=== PATIENT | male | born 2000 | race African-American/Black ===

== ENCOUNTER 2022-08-23 16:49 | Emergency (ER) | payer MEDICAID, SELFPAY ==
[2022-08-23 17:42] VITALS: BP 146/95; PULSE 56; RESP 18; TEMP 36.6; O2SAT 100; BMI 19.3
--- NOTE | 2022-08-23 17:42 | ED_ITS ---
HPI - Dental/Oral General Chief complaint: General Medical Stated complaint: mouth infection tooth pain Time Seen by Provider: 08/23/22 17:44 Source: patient Mode of arrival: ambulatory Limitations: no limitations History of Present Illness HPI Narrative: 21 yo male presents to the ER for evaluation of right lower wisdom tooth infection for the last 6 weeks. He reports completing a course of antibiotic about a month ago that only briefly helped. He states he has a cracked right lower wisdom tooth and need to get it removed. He called and has a dentist appointment 09/07 but report the pain is worse today. He reports increased lymph nodes on his neck. No trouble opening/closing the jaw, neck swelling, trouble swallowing or speaking. No fevers at home. MD Complaint: tooth pain Location: Tooth # Teeth map: 1. #32 Onset (ago): week(s) Duration: worsening Severity: severe Severity scale (1-10): 9 Relieving factors: nothing Exacerbating factors: chewing Context: trauma (mechanism) Associated symptoms: ear pain Treatment prior to arrival: none Related Data Previous Rx's Medication Instructions Recorded clindamycin HCl 300 mg capsule 300 mg PO Q8H 10 days #30 caps 08/23/22 ibuprofen 600 mg tablet 600 mg PO Q8H PRN pain #20 tabs 08/23/22 tramadol 50 mg tablet 50 mg PO Q6H PRN severe pain 08/23/22 (scale score 7-10) #10 tabs Allergies Allergy/AdvReac Type Severity Reaction Status Date / Time No Known Allergies Allergy Verified 08/23/22 17:47 Review of Systems Review of Systems: Yes all other systems are reviewed and are negative FOR[facility]LY [facility] Social History Social History Advance Directives: No Advance Directives Information Provided: No Physical Exam Vital Signs: Vital Signs: Last Vital Signs Temp 97.9 F 08/23/22 17:42 Pulse 56 08/23/22 17:42 Resp 18 08/23/22 17:42 BP 146/95 H 08/23/22 17:42 Pulse Ox 100 08/23/22 17:42 O2 Del Method 08/23/22 17:42 BMI result Body Mass Index 19.3 Appearance: Alert. Oriented X3. No acute distress. HEENT: normal external inspection. no anterior neck swelling. no trismus. right lower molar with crack w/ exposed dentin, associated gingival tenderness and redness. no fluctunace. uvula midline, no tonsillar swelling Neck: few small tender LN along the submandibular area on the right CVS: Normal heart rate and rhythm. Pulses normal. Respiratory: No respiratory distress. Skin: Skin warm and dry. Normal skin color. Normal skin turgor. No rashes. Extremities: normal inspection Neuro: Oriented X 3. Normal speech and cognition, nonfocal Course Course Course Narrative: 21 yo male presenting with right lower wisdom tooth pain x6 weeks. NO palpable abscess on exam today. No neck swelling. Will treat with PO abx, pain control and anti-inflammatories. List of emergency dental clinics provided to try to get in earlier. Stable for d/c home. Medical Decision Making Differential Diagnosis Differential Diagnoses: The differential diagnosis associated with the presentation includes dental trauma, dental infection, dental abscess, doubt ludwigs angina, soft tissue infection of the neck Prescription Management I considered prescription management with: Pain Medication and Antibiotic Critical Care Time Critical Care Time Critical Care Time: No Discharge Plan Discharge Clinical Impression: Toothache Patient Disposition: Home, Self-Care Instructions: Toothache (ED) Prescriptions: New clindamycin HCl 300 mg capsule 300 mg PO Q8H 10 Days Qty: 30 0RF ibuprofen 600 mg tablet 600 mg PO Q8H PRN (Reason: pain) Qty: 20 0RF tramadol 50 mg tablet 50 mg PO Q6H PRN (Reason: severe pain (scale score 7-10)) Qty: 10 0RF Interventions: ED Discharge Assessment Last Done: 08/23/22 18:41 Discharge Date/Time: 08/23/22 18:42
== END 2022-08-23 18:42 | disposition home or self-care (01) ==
LOC: HO.ED 18:00
PROVIDERS: Emergency Provider Emergency Medicine
DX: K08.89 Other specified disorders of teeth and supporting structures (principal); K03.81 Cracked tooth
CPT/HCPCS: 99282; 99283

== ENCOUNTER 2022-09-02 00:15 | Emergency (ER) | payer MEDICAID, SELFPAY ==
[2022-09-02 00:20] VITALS: BP 143/99; PULSE 55; RESP 18; TEMP 36.6; O2SAT 100; BMI 19.9
--- NOTE | 2022-09-02 00:38 | ED_ITS ---
HPI - Dental/Oral General Chief complaint: Dental/Oral Stated complaint: tooth pain Time Seen by Provider: 09/02/22 00:37 Source: patient Mode of arrival: ambulatory Limitations: no limitations History of Present Illness HPI Narrative: Patient with dental caries was seen here on 08/23 comes here again as pain getti ng worse was treated with clindamycin patient is a deep cavity in left upper premolar no fever no chills Related Data Previous Rx's Medication Instructions Recorded clindamycin HCl 300 mg capsule 300 mg PO Q8H 10 days #30 caps 08/23/22 ibuprofen 600 mg tablet 600 mg PO Q8H PRN pain #20 tabs 08/23/22 tramadol 50 mg tablet 50 mg PO Q6H PRN severe pain 08/23/22 (scale score 7-10) #10 tabs amoxicillin 875 mg-potassium 1 tab PO BID #20 tabs 09/02/22 clavulanate 125 mg tablet oxycodone 5 mg tablet 5 mg PO Q6H PRN pain #20 tabs 09/02/22 Allergies Allergy/AdvReac Type Severity Reaction Status Date / Time No Known Allergies Allergy Verified 09/02/22 00:20 Review of Systems Review of Systems: Yes all other systems are reviewed and are negative PMFSH Social History Social History Advance Directives: No Advance Directives Information Provided: Yes Physical Exam Vital Signs: Vital Signs: Last Vital Signs Temp 97.8 F 09/02/22 00:20 Pulse 55 09/02/22 00:20 Resp 18 09/02/22 00:20 BP 143/99 H 09/02/22 00:20 Pulse Ox 100 09/02/22 00:20 O2 Del Method 09/02/22 00:20 BMI result Body Mass Index 19.9 Appearance: Alert. Oriented X3. Mild distal s. ENT: Pharynx normal. Oral Mucosa moist Neck: Normal inspection. Neck supple. CVS: Normal heart rate and rhythm. Pulses normal. Respiratory: No respiratory distress. Equal air entry bilateral, Skin: Skin warm and dry. Normal skin color. Normal skin turgor. Extremities: No lower extremity edema. Neuro: Oriented X 3. HEENT: Teeth image: 1. Diffuse cavity broken to left upper premolar multiple cavities in other teeth with loss of teeth no gum swelling Medications Administered Discontinued Medications Generic Name Dose Route Start Last Admin Trade Name Freq PRN Reason Stop Dose Admin Amoxicillin/Clavulanate Potassium 875 mg 09/02/22 00:38 09/02/22 00:48 Amoxicillin/Potassium Clav 875 Mg Tablet PO 09/02/22 00:39 875 mg ONCE ONE Administration Oxycodone HCl 10 mg 09/02/22 00:38 09/02/22 00:47 Oxycodone Hcl Immed Release 5 Mg Tablet PO 09/02/22 00:39 10 mg ONCE ONE Administration Medical Decision Making Medical Decision Making [facility] Narrative: Patient refuse care is discharged home on Augmentin and pain medication advised to follow-up with dentist Discharge Plan Discharge Clinical Impression: Dental caries Patient Disposition: Home, Self-Care Instructions: Toothache (ED) Additional Instructions: Take antibiotic as prescribed Pain medication as prescribed Follow up with dentist Prescriptions: New amoxicillin-pot clavulanate 875-125 mg tablet 1 tab PO BID Qty: 20 0RF oxycodone 5 mg tablet 5 mg PO Q6H PRN (Reason: pain) Qty: 20 0RF Rx Instructions: Partial Fill upon patient request. No Action clindamycin HCl 300 mg capsule 300 mg PO Q8H 10 Days Qty: 30 0RF ibuprofen 600 mg tablet 600 mg PO Q8H PRN (Reason: pain) Qty: 20 0RF tramadol 50 mg tablet 50 mg PO Q6H PRN (Reason: severe pain (scale score 7-10)) Qty: 10 0RF Interventions: ED Discharge Assessment Last Done: 09/02/22 00:53 Discharge Date/Time: 09/02/22 00:53
[2022-09-02] MEDS: oxyCODONE HCl Immed Release 5 MG TABLET 10 MG PO (00:47)
[2022-09-02] MEDS: Amoxicillin/Potassium Clav 875 MG TABLET PO (00:48)
--- NOTE | 2022-09-02 00:52 | PC.NURSE ---
medicated per provider order.
== END 2022-09-02 00:53 | disposition home or self-care (01) ==
PROVIDERS: Emergency Provider Internal Medicine
DX: K02.9 Dental caries, unspecified (principal); K08.89 Other specified disorders of teeth and supporting structures
CPT/HCPCS: 99283

== ENCOUNTER 2022-09-09 04:33 | Emergency (ER) | payer MEDICAID, SELFPAY ==
[2022-09-09 05:17] VITALS: BP 149/80; PULSE 58; RESP 18; TEMP 36.9; O2SAT 100; BMI 19.3
[2022-09-09 07:53] VITALS: BP 141/86; PULSE 57; RESP 16; TEMP 36.9; O2SAT 100
--- NOTE | 2022-09-09 08:50 | ED_ITS ---
HPI - Dental/Oral General Chief complaint: Dental/Oral Stated complaint: tooth pain, throat pain Time Seen by Provider: 09/09/22 08:39 Source: patient Mode of arrival: ambulatory History of Present Illness HPI Narrative: 21-year-old male with past medical history dental caries presenting to the ED complaining of acute on chronic right lower and left upper dental pain x months. Admits was recently seen and treated in the ED for similar symptoms finished 2 courses of antibiotics without relief. Reports followed up with dentist yesterday however was unable to be seen due to insurance issues. Reports pain radiates to right ear. Denies fever, chills, oral swelling, difficulty/inability to swallow MD Complaint: tooth pain Onset (ago): month(s) Related Data Previous Rx's Medication Instructions Recorded clindamycin HCl 300 mg capsule 300 mg PO Q8H 10 days #30 caps 08/23/22 ibuprofen 600 mg tablet 600 mg PO Q8H PRN pain #20 tabs 08/23/22 tramadol 50 mg tablet 50 mg PO Q6H PRN severe pain 08/23/22 (scale score 7-10) #10 tabs amoxicillin 875 mg-potassium 1 tab PO BID #20 tabs 09/02/22 clavulanate 125 mg tablet oxycodone 5 mg tablet 5 mg PO Q6H PRN pain #20 tabs 09/02/22 acetaminophen 500 mg tablet 500 mg PO Q6H PRN fever or pain 09/09/22 (Tylenol Extra Strength) #14 tabs ketorolac 10 mg tablet 10 mg PO TID PRN pain 5 days #15 09/09/22 tabs Allergies Allergy/AdvReac Type Severity Reaction Status Date / Time No Known Allergies Allergy Verified 09/02/22 00:20 Review of Systems Review of Systems: Constitutional: No Fever, No Chills ENT/Mouth: +dental pain, + Ear Pain, No Nasal Congestion, No Hoarseness, No sore throat, No Rhinorrhea, No Swallowing Difficulty Cardiovascular: No Chest Pain, No SOB Respiratory: No Cough, No Sputum, No Wheezing Gastrointestinal: No Nausea, No Vomiting, No Diarrhea, No Constipation, No Abdominal pain Musculoskeletal: No joint pain, No Myalgias, No Joint Swelling Skin: No Skin Lesions, No rash Neuro: No Weakness Yes all other systems are reviewed and are negative Constitutional: Constitutional: Reports as per HPI [facility] Past Medical History Attestation statement: The following information was validated with the patient. Social History Social History Alcohol intake: never Smoked in Last 30 Days: No Use of substances other than those prescribed or required for medical reasons: No Advance Directives: No Physical Exam Vital Signs: Vital Signs: Last Vital Signs Temp 98.5 F 09/09/22 07:53 Pulse 57 09/09/22 07:53 Resp 16 09/09/22 07:53 BP 141/86 H 09/09/22 07:53 Pulse Ox 100 09/09/22 07:53 O2 Del Method 09/09/22 07:53 BMI result Body Mass Index 19.3 Const: General: cooperative, healthy appearing, comfortable and no acute distress Orientation/consciousness: patient oriented x3 Limitations: no limitations HEENT: Other: + right lower molar and left upper premolar cracked. No visible pulp. No erythema, no gingival swelling, no gingival tenderness. No fluctuance and induration Head: Yes normal to inspection and Yes atraumatic Ears: hearing grossly normal bilaterally, TM's normal bilaterally and mastoids normal General nose exam: Normal external nose present Face and sinus: Yes normal facial exam Teeth and gingiva: gingiva normal and normal gingiva Throat: Yes posterior oropharynx normal, Yes tonsils normal and Yes uvula midline Eyes: General: appearance normal, both eyes and all related structures EOM: EOMs intact bilaterally Neck: Neck: Yes normal visual inspection, Yes no meningeal signs, Yes supple, No anterior neck swelling and No torticollis Resp: Effort & Inspection: normal respiratory effort and no respiratory distress Cardio: Rate: regular rate Skin: Rashes: no rashes Wounds: no wounds Neuro: General: patient oriented x3, tone normal and no meningeal signs Gait exam (Neuro): Normal gait present Extrem: General: Yes normal to inspection Medications Administered Discontinued Medications Generic Name Dose Route Start Last Admin Trade Name Freq PRN Reason Stop Dose Admin Ketorolac Tromethamine 30 mg 09/09/22 08:51 09/09/22 09:07 Ketorolac Tromethamine 30 Mg/Ml Vial IM 09/09/22 08:52 30 mg ONCE ONE Administration Medical Decision Making Medical Decision Making MDM Narrative: 21-year-old male with past medical history dental caries presenting to the ED complaining of acute on chronic right lower and left upper dental pain x months. On exam vital signs stable, NAD, nontoxic appearing, physical exam as noted above. No evidence of active infection, no dental abscess/fluctuance or induration. Chronically cracked teeth without gingival inflammation/erythema. Per chart review patient recently finished a course of Clindamycin and Augmentin. Low concern for infection at this time. Discussed with patient needed dentistry follow-up. Will give IM Toradol and pain control Will avoid additional antibiotics at this time in supply patient with dental clinic list Results discussed with patient including worrisome signs and symptoms and strict return precautions, and when to return to the emergency department. They verbalized understanding and feel safe for discharge at this time. Differential Diagnosis Differential Diagnoses: The differential diagnosis associated with the presentation includes as above External Record Review External record reviewed: Prior outpatient labs, Prior outpatient radiology and Primary care record Prescription Management I considered prescription management with: Pain Medication Discharge Plan Discharge Clinical Impression: Toothache Patient Disposition: Home, Self-Care Instructions: Toothache (ED) Additional Instructions: Toradol as an anti-inflammatory/pain medication, take with food. In addition take Tylenol Please follow-up with a dentist you need her teeth pulled Area begins look infected, has increasing swelling, redness, you fever or drainage from the area return to the emergency department Prescriptions: New acetaminophen [Tylenol Extra Strength] 500 mg tablet 500 mg PO Q6H PRN (Reason: fever or pain) Qty: 14 0RF ketorolac 10 mg tablet 10 mg PO TID PRN (Reason: pain) 5 Days Qty: 15 0RF No Action clindamycin HCl 300 mg capsule 300 mg PO Q8H 10 Days Qty: 30 0RF ibuprofen 600 mg tablet 600 mg PO Q8H PRN (Reason: pain) Qty: 20 0RF tramadol 50 mg tablet 50 mg PO Q6H PRN (Reason: severe pain (scale score 7-10)) Qty: 10 0RF amoxicillin-pot clavulanate 875-125 mg tablet 1 tab PO BID Qty: 20 0RF oxycodone 5 mg tablet 5 mg PO Q6H PRN (Reason: pain) Qty: 20 0RF Rx Instructions: Partial Fill upon patient request. Referrals: Dvaid Nieto [Dentist] - Scar Lee DMD [Dentist] - Tim Jon DMD [Dentist] - ED Physician,Generic [Physician] - 5 days Interventions: ED Discharge Assessment Last Done: 09/09/22 09:19 Discharge Date/Time: 09/09/22 09:20
[2022-09-09] MEDS: Ketorolac Tromethamine 30 MG/ML VIAL IM (09:07)
== END 2022-09-09 09:20 | disposition home or self-care (01) ==
PROVIDERS: Emergency Provider Student in an Organized Health Care Education/Training Program
DX: R07.0 Pain in throat (principal); K08.89 Other specified disorders of teeth and supporting structures; Z79.899 Other long term (current) drug therapy
CPT/HCPCS: 96372; 99284; J1885

== ENCOUNTER 2022-09-14 02:38 | Emergency (ER) | payer MEDICAID, SELFPAY ==
[2022-09-14 02:55] VITALS: BP 135/89; PULSE 60; RESP 15; TEMP 36.6; O2SAT 99; BMI 19.9
--- NOTE | 2022-09-14 04:24 | ED.DENTAL ---
HPI - Dental/Oral General Chief complaint: Dental/Oral Stated complaint: severe tooth pain bottom teeth Time Seen by Provider: 09/14/22 04:20 Source: patient Mode of arrival: ambulatory History of Present Illness HPI Narrative: 21-year-old male who presents with recurrent/persistent dental pain and this will be the 2nd time he is requesting antibiotics. He denies any difficulty with breathing or swallowing. He denies any fever or chills. Related Data Previous Rx's Medication Instructions Recorded clindamycin HCl 300 mg capsule 300 mg PO Q8H 10 days #30 caps 08/23/22 ibuprofen 600 mg tablet 600 mg PO Q8H PRN pain #20 tabs 08/23/22 tramadol 50 mg tablet 50 mg PO Q6H PRN severe pain 08/23/22 (scale score 7-10) #10 tabs amoxicillin 875 mg-potassium 1 tab PO BID #20 tabs 09/02/22 clavulanate 125 mg tablet oxycodone 5 mg tablet 5 mg PO Q6H PRN pain #20 tabs 09/02/22 acetaminophen 500 mg tablet 500 mg PO Q6H PRN fever or pain 09/09/22 (Tylenol Extra Strength) #14 tabs ketorolac 10 mg tablet 10 mg PO TID PRN pain 5 days #15 09/09/22 tabs amoxicillin 875 mg-potassium 1 tab PO BID 10 days #20 tabs 09/14/22 clavulanate 125 mg tablet Allergies Allergy/AdvReac Type Severity Reaction Status Date / Time No Known Allergies Allergy Verified 09/02/22 00:20 Review of Systems Review of Systems: Pertinent positives and negatives as stated in HPI PMFSH Past Medical History Source: nursing notes reviewed Social History Social History Alcohol intake: never Advance Directives: No Advance Directives Information Provided: Yes Physical Exam Vital Signs: Vital Signs: Last Vital Signs Temp 98 F 09/14/22 02:55 Pulse 60 09/14/22 02:55 Resp 15 09/14/22 02:55 BP 135/89 09/14/22 02:55 Pulse Ox 99 09/14/22 02:55 O2 Del Method 09/14/22 02:55 BMI result Body Mass Index 19.9 VITAL SIGNS: Reviewed. GENERAL: Well developed, well nourished, in mild distress. HEAD: Normocephalic/atraumatic EYES: PERRLA, EOMI OROPHARYNX: no oral lesions noted, posterior pharynx clear, no trismus NECK: Supple, no adenopathy LUNGS: Normal breath sounds. No adventitious sounds or accessory muscle use. SpO2<99> CARDIOVASCULAR: Regular rate and rhythm without noted murmurs ABDOMEN: Soft, non-tender, non-distended with bowel sounds. NEUROLOGIC: Alert and oriented x 4. Strength and sensation to light touch were grossly intact x 4. Medications Administered Discontinued Medications Generic Name Dose Route Start Last Admin Trade Name Freq PRN Reason Stop Dose Admin Acetaminophen 975 mg 09/14/22 04:24 09/14/22 04:38 Acetaminophen 325 Mg Tablet PO 09/14/22 04:25 975 mg ONCE ONE Administration Amoxicillin/Clavulanate Potassium 875 mg 09/14/22 04:24 09/14/22 04:37 Amoxicillin/Potassium Clav 875 Mg Tablet PO 09/14/22 04:25 875 mg ONCE ONE Administration Ibuprofen 400 mg 09/14/22 04:24 09/14/22 04:37 Ibuprofen 400 Mg Tablet PO 09/14/22 04:25 400 mg ONCE ONE Administration Medical Decision Making Medical Decision Making MDM Narrative: 21-year-old male with history and clinical presentation of dental infection that he still has not gone to be evaluated for. He is given topical anesthetic, combination analgesics, initial antibiotics and discharged home in stable condition with remaining course of antibiotics. Differential Diagnosis Please see the discussion above External Record Review External record reviewed: Outpatient record and Prior outpatient labs Discharge Plan Discharge Clinical Impression: Toothache, Dental caries Patient Disposition: Home, Self-Care Instructions: Dental Abscess (ED), Toothache (ED) Additional Instructions: 1. Tylenol 1000 mg, orally, every 6 hours as needed for pain control. Do not exceed 4000 mg within 24 hours. 2. Ibuprofen 400 mg, orally with milk or food, every 6 hours as needed for pain control. Take this medication with the Tylenol for additional symptom relief. 3. Go see a dentist!! You have been here 3 times within the past month, it is very important. You can use Anbesol, it is available over the counter. Prescriptions: New amoxicillin-pot clavulanate 875-125 mg tablet 1 tab PO BID 10 Days Qty: 20 0RF No Action clindamycin HCl 300 mg capsule 300 mg PO Q8H 10 Days Qty: 30 0RF ibuprofen 600 mg tablet 600 mg PO Q8H PRN (Reason: pain) Qty: 20 0RF tramadol 50 mg tablet 50 mg PO Q6H PRN (Reason: severe pain (scale score 7-10)) Qty: 10 0RF amoxicillin-pot clavulanate 875-125 mg tablet 1 tab PO BID Qty: 20 0RF oxycodone 5 mg tablet 5 mg PO Q6H PRN (Reason: pain) Qty: 20 0RF Rx Instructions: Partial Fill upon patient request. acetaminophen [Tylenol Extra Strength] 500 mg tablet 500 mg PO Q6H PRN (Reason: fever or pain) Qty: 14 0RF ketorolac 10 mg tablet 10 mg PO TID PRN (Reason: pain) 5 Days Qty: 15 0RF Interventions: ED Discharge Assessment Last Done: 09/14/22 04:43 Discharge Date/Time: 09/14/22 04:43
[2022-09-14] MEDS: Ibuprofen 400 MG TABLET PO (04:37)
[2022-09-14] MEDS: Amoxicillin/Potassium Clav 875 MG TABLET PO (04:37)
[2022-09-14] MEDS: Acetaminophen 325 MG TABLET 975 MG PO (04:38)
== END 2022-09-14 04:43 | disposition home or self-care (01) ==
PROVIDERS: Emergency Provider Student in an Organized Health Care Education/Training Program
DX: K02.9 Dental caries, unspecified (principal)
CPT/HCPCS: 99283

== ENCOUNTER 2022-10-23 03:50 | Emergency (ER) | payer MEDICAID, SELFPAY ==
[2022-10-23 04:04] VITALS: BP 139/95; PULSE 45; RESP 16; TEMP 36.2; O2SAT 99; BMI 18.6
--- NOTE | 2022-10-23 05:07 | PC.NURSE ---
Pt presents with c/o tooth pain, left upper, ? recurrent infection. Issues has been ongoing since August and pt is scheducled for a tooth extraction 11/02. Has been treated with antibiotics recently and pt finished the prescription. Yesterday, pain returned and is described as throbbing/burning and currently rated 3/10. Pain is unrelieved by OTC measures at home. No other complaints or concerns reported.
--- NOTE | 2022-10-23 06:43 | PC.NURSE ---
Pt is sleeping, but arousable with verbal stimuli. Appears to be comfortable and changes position independently as desired.
--- NOTE | 2022-10-23 07:13 | ED_ITS ---
HPI - Dental/Oral General Chief complaint: Dental/Oral Stated complaint: Mouth Pain Time Seen by Provider: 10/23/22 06:59 Source: patient Mode of arrival: ambulatory Limitations: no limitations History of Present Illness HPI Narrative: 21-year-old male healthy presents with 2 months of left upper dental pain. Kia ent reports that he was seen at his dentist and was recommended that he have the tooth extracted. He has plans to have it removed on November 02. He reports over the last few days it increasing pain to the tooth, swelling and discomfort. No fevers or chills. Using Tylenol/Motrin at home with continued symptoms MD Complaint: tooth pain Related Data Previous Rx's Medication Instructions Recorded clindamycin HCl 300 mg capsule 300 mg PO Q8H 10 days #30 caps 08/23/22 ibuprofen 600 mg tablet 600 mg PO Q8H PRN pain #20 tabs 08/23/22 tramadol 50 mg tablet 50 mg PO Q6H PRN severe pain 08/23/22 (scale score 7-10) #10 tabs amoxicillin 875 mg-potassium 1 tab PO BID #20 tabs 09/02/22 clavulanate 125 mg tablet oxycodone 5 mg tablet 5 mg PO Q6H PRN pain #20 tabs 09/02/22 acetaminophen 500 mg tablet 500 mg PO Q6H PRN fever or pain 09/09/22 (Tylenol Extra Strength) #14 tabs ketorolac 10 mg tablet 10 mg PO TID PRN pain 5 days #15 09/09/22 tabs amoxicillin 875 mg-potassium 1 tab PO BID 10 days #20 tabs 09/14/22 clavulanate 125 mg tablet amoxicillin 875 mg-potassium 1 tab PO BID #14 tabs 10/23/22 clavulanate 125 mg tablet Allergies Allergy/AdvReac Type Severity Reaction Status Date / Time No Known Allergies Allergy Verified 09/02/22 00:20 Review of Systems Review of Systems: Yes all other systems are reviewed and are negative Constitutional: Constitutional: Reports no additional constitutional complaints, Denies body ache(s), Denies chills, Denies fever(s), Denies headache(s) and Denies weakness Eyes: Eyes: Reports no additional eye complaints and Denies change in vision ENT: Reports system reviewed and no additional complaints, except as documented, Reports dental pain, Denies dizziness, Denies headache(s), Denies nasal congestion, Denies nasal discharge and Denies neck pain Cardiovascular: Cardiovascular: Reports no additional cardiovascular complaints, Denies chest pain, Denies leg edema and Denies dyspnea Respiratory: Respiratory: Reports no additional respiratory complaints, Denies cough and Denies dyspnea Gastrointestinal: Gastrointestinal: Reports no additional gastrointestinal complaints, Denies abdominal pain, Denies diarrhea, Denies nausea and Denies vomiting Genitourinary: Genitourinary: Denies urinary incontinence Musculoskeletal: Musculoskeletal: Reports no additional musculoskeletal complaints, Denies back pain, Denies arthralgias, Denies joint swelling, Denies neck pain, Denies numbness and Denies tingling Integumentary/Breasts: Skin/Breast: Reports system reviewed and no additional complaints, except as docu and Denies rash Neurologic: Reports system reviewed and no additional complaints, except as documented, Denies Abnormal speech present, Denies dizziness, Denies headache(s), Denies numbness, Denies tingling and Denies weakness PMFSH Past Medical History Attestation statement: The following information was validated with the patient. Source: old records reviewed and nursing notes reviewed Social History Social History Alcohol intake: never Advance Directives: No Advance Directives Information Provided: Yes Physical Exam Vital Signs: Vital Signs: Last Vital Signs Temp 97.1 F 10/23/22 04:04 Pulse 45 L 10/23/22 04:04 Resp 16 10/23/22 04:04 BP 139/95 H 10/23/22 04:04 Pulse Ox 99 10/23/22 04:04 O2 Del Method Room Air 10/23/22 04:04 BMI result Body Mass Index 18.6 Const: General: cooperative, healthy appearing, comfortable and no acute distress Orientation/consciousness: patient oriented x3 Limitations: no limitations HEENT: Other: No trismus Head: Yes normal to inspection Ears: hearing grossly normal bilaterally General nose exam: Normal external nose present Face and sinus: Yes normal facial exam Mouth: Normal oral and palatal mucosa present Teeth image: 1. There is a broken tooth with exposed pulp, there is local erythema, tenderness at the gingival line with no abscess seen Throat: Yes posterior oropharynx normal Eyes: General: appearance normal, both eyes and all related structures Pupils: Equal, round and reactive pupils present Neck: Neck: Yes normal visual inspection, Yes full ROM, Yes no lymphadenopathy and Yes no meningeal signs Chest: Chest palpation & inspection: normal inspection of the chest Resp: Effort & Inspection: normal respiratory effort Auscultation: clear to auscultation bilaterally Cardio: Rate: regular rate Rhythm: regular rhythm Peripheral pulses: Peripheral pulses 2+ throughout GI: Inspection: Yes normal to inspection Palpation (GI): Soft to palpation and nontender Auscultation: normal bowel sounds Back/Spine/Pelvis: Thoracic/Lumbar Spine: thoracic and lumbar spine normal to inspection Skin: General skin exam: no rashes or lesions noted Neuro: General: patient oriented x3, no meningeal signs, no focal motor deficits and normal sensation to monofilament Cranial nerves: Yes Equal, round and reactive pupils present Cognition (Neuro): normal cognition Speech: No Abnormal speech present Gait exam (Neuro): Normal gait present Motor exam (neuro): 5/5 motor strength present throughout Extrem: General: Yes normal to inspection Medical Decision Making Medical Decision Making MDM Narrative: 21-year-old male here with left upper dental pain for 2 months. Patient with planned tooth extraction on the 02 of November here with increased pain and swelling over the last few days. On exam no trismus. Patient has a broken tooth left upper dental area with exposed pulp with local erythema, tenderness and swelling. No abscess seen. Will initiate antibiotics and recommend continuing Motrin, Tylenol home and follow-up with dentist Differential Diagnosis Differential Diagnoses: The differential diagnosis associated with the presentation includes No dental abscess seen, low concern for Daniel's angina Dental infection Discharge Plan Discharge Clinical Impression: Dental caries Patient Disposition: Home, Self-Care Instructions: Toothache (ED) Additional Instructions: Keep your appointment on the to have your tooth removed Saltwater gargle Continue to alternate Motrin and Tylenol for pain as needed Prescriptions: New amoxicillin-pot clavulanate 875-125 mg tablet 1 tab PO BID Qty: 14 0RF No Action clindamycin HCl 300 mg capsule 300 mg PO Q8H 10 Days Qty: 30 0RF ibuprofen 600 mg tablet 600 mg PO Q8H PRN (Reason: pain) Qty: 20 0RF tramadol 50 mg tablet 50 mg PO Q6H PRN (Reason: severe pain (scale score 7-10)) Qty: 10 0RF amoxicillin-pot clavulanate 875-125 mg tablet 1 tab PO BID Qty: 20 0RF oxycodone 5 mg tablet 5 mg PO Q6H PRN (Reason: pain) Qty: 20 0RF Rx Instructions: Partial Fill upon patient request. amoxicillin-pot clavulanate 875-125 mg tablet 1 tab PO BID 10 Days Qty: 20 0RF acetaminophen [Tylenol Extra Strength] 500 mg tablet 500 mg PO Q6H PRN (Reason: fever or pain) Qty: 14 0RF ketorolac 10 mg tablet 10 mg PO TID PRN (Reason: pain) 5 Days Qty: 15 0RF Referrals: Physician,Nonstaff [Primary Care Provider] -
== END 2022-10-23 07:46 | disposition home or self-care (01) ==
PROVIDERS: Emergency Provider Emergency Medicine
DX: K02.9 Dental caries, unspecified (principal); K08.89 Other specified disorders of teeth and supporting structures
CPT/HCPCS: 99283; 99284

== ENCOUNTER 2024-04-07 06:20 | Emergency (ER) | payer OTHER, SELFPAY ==
--- NOTE | 2024-04-07 | ECG_ITS ---
Test Reason : CHEST DISCOMFORT Blood Pressure : / mmHG Vent. Rate : 051 BPM Atrial Rate : 051 BPM P-R Int : 150 ms QRS Dur : 094 ms QT Int : 418 ms P-R-T Axes : 043 075 061 degrees QTc Int : 385 ms Sinus bradycardia with sinus arrhythmia Septal infarct , age undetermined Abnormal ECG No previous ECGs available Referred By: Generic ED Physician Electronically Signed By:IMER PAUL
--- NOTE | ~2024-04-07 | XR_ITS ---
EXAMINATION: XR CHEST CLINICAL INFORMATION: Difficulty breathing COMPARISON: None available. TECHNIQUE: 2 views of the chest were obtained. FINDINGS: No significant abnormality is noted involving the heart, lungs, mediastinum, bony thorax or soft tissues. XR/XR chest 2V IMPRESSION: Unremarkable examination. Electronically signed by: Michael Peterson MD 04/07/2024 07:35 AM EDT RP
[2024-04-07 06:32] VITALS: BP 118/88; BP 137/68; PULSE 54; PULSE 55; RESP 20; TEMP 36.8; O2SAT 100; O2SAT 99; BMI 19.2
--- NOTE | 2024-04-07 06:45 | PC.NURSE ---
pt biba from home, a&ox4, respirations even and unlabored. pt reports having multiple cups of coffee before going to sleep, and reports waking up at 3am, feeling faint, dizzy and lightheaded. pt reports he has not slept a full 8 hours in 3 days and reports he feels like he is sleep deprived. pt normal sinus on tele [id number].
--- NOTE | 2024-04-07 06:59 | ED.GENADULT ---
HPI - General Adult General Chief complaint: General Medical Stated complaint: SLEEP DEPRIVED, FEELS LIKE MOVING SLOW Time Seen by Provider: 04/07/24 06:45 Source: patient and EMS Mode of arrival: EMS Limitations: no limitations History of Present Illness HPI narrative: Patient is a 23-year-old male presents emergency department via EMS for evaluation. He reports that he went to sleep at approximately 03:00 this morning, he awoke about 2 hours later feeling unwell. He felt like his breathing is slowed, he felt like he was moving very slowly and he felt his heart beating slow. He reports he has never felt like this in the past. He reports that his chest then became ?uncomfortable?, and he was worried that something was not right. He is currently staying in a hotel and felt uneasy about being alone there. 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 He does admit that he has been consuming a larger amount of caffeine than usual lately with having been studying. He exercises frequently throughout the week, primarily strength training. He denies taking any exercise supplements aside from drinking muscle milk (protein shake) He reports otherwise feeling well, has no reported past medical history, denies any recent URI symptoms or gastrointestinal symptoms. Related Data Previous Rx's ?Medication ?Instructions ?Recorded clindamycin HCl 300 mg capsule 300 mg PO Q8H 10 days #30 caps 08/23/22 ibuprofen 600 mg tablet 600 mg PO Q8H PRN pain #20 tabs 08/23/22 tramadol 50 mg tablet 50 mg PO Q6H PRN severe pain 08/23/22 (scale score 7-10) #10 tabs amoxicillin 875 mg-potassium 1 tab PO BID #20 tabs 09/02/22 clavulanate 125 mg tablet oxycodone 5 mg tablet 5 mg PO Q6H PRN pain #20 tabs 09/02/22 acetaminophen 500 mg tablet 500 mg PO Q6H PRN fever or pain 09/09/22 (Tylenol Extra Strength) #14 tabs ketorolac 10 mg tablet 10 mg PO TID PRN pain 5 days #15 09/09/22 tabs amoxicillin 875 mg-potassium 1 tab PO BID 10 days #20 tabs 09/14/22 clavulanate 125 mg tablet amoxicillin 875 mg-potassium 1 tab PO BID #14 tabs 10/23/22 clavulanate 125 mg tablet Allergies Allergy/AdvReac Type Severity Reaction Status Date / Time No Known Allergies Allergy Verified 04/07/24 06:34 Review of Systems Review of Systems: Yes all other systems are reviewed and are negative [facility] Past Medical History Attestation statement: The following information was validated with the patient. Source: old records reviewed Social History Social History Alcohol intake: never Smoked in Last 30 Days: No Use of substances other than those prescribed or required for medical reasons: No Advance Directives: No Advance Directives Information Provided: No Do you have a plan to hurt others: No Plan Physical Exam ED Vital Signs: Vital Signs - 24 hr 04/07/24 06:32 04/07/24 08:23 Temperature 98.3 F 97.6 F Pulse Rate 54 63 Respiratory Rate 20 13 Blood Pressure 137/68 125/86 Pulse Oximetry 100 100 Oxygen Delivery Method Room Air Room Air BMI result Body Mass Index 19.2 Appearance: Alert.?Oriented to person, place and time. No acute distress.?Normal affect. Eyes: Pupils equal, round and reactive to light.? EOMI. No nystagmus. ENT: Pharynx normal.?? Neck: Normal inspection.? Neck supple.?? CVS: Heart sounds normal. Bradycardia, sinus arrhythmia? Pulses normal.?? Respiratory: No respiratory distress.? Lung sounds clear to auscultation bilaterally?? Abdomen: Soft and non-tender. Normoactive bowel sounds. No pulsatile mass.?? Skin: Skin warm and dry.? Normal skin color.??? Extremities: No lower extremity edema.? No calf ttp? Neuro: Moves all extremities spontaneously. Sensation intact bilaterally. CN II-XII intact. No focal neuro deficits. Ambulates with normal steady gait. Course Reevaluation(s) Reevaluation #1: CXR is without evidence of pneumonia, no pneumothorax, he is in no respiratory distress, no hypoxia or tachypnea. Although he had subjective ?slow breathing?, I do not appreciate this at this time. He is respiratory effort is normal. There was some associated chest discomfort as well and no sensation of a slow heart rate, he is bradycardic but not alarmingly so no sign of significant arrhythmia or AV block on ECG or telemetry. No syncope or presyncope. Serum labs were overall unremarkable. EKG without acute ischemic findings, high sensitive troponin below detectable limits, no risk factors, low suspicion for ACS. At this time I feel that he is stable for discharge, outpatient follow-up with a primary care provider for any persistent symptoms. Instructed on reasons to return to emergency department. Medical Decision Making Medical Decision Making [facility] Narrative: Patient is a 23-year-old male with no reported past medical history presents emergency department for evaluation of sensation of slowed breathing, bradycardia, chest discomfort with onset this morning upon awakening as per HPI, of note he had OB slept for approximately 2 hours at that time. He expresses concern that he has been consuming a larger than normal caffeine amount recently, but has not previously had symptoms like this. He appears well nourished, in no distress, speaking clear full sentences, lung sounds are clear to the apices bilaterally. He is noted to have a mild bradycardia with pulse in the 50s, he is not certain whether this is baseline for him, though given he is young, rather fit, and engaging in regular exercises may perhaps the a baseline for him. On review of his initial EKG indicates a sinus bradycardia with arrhythmia, ventricular rate of 51, QTC 385, T-waves are peaked in V3-V5 though this may be due to his thin complex, T-wave inversions are noted in V1-V2. Will obtain CBC to evaluate for leukocytosis/ anemia, CMP and lipase to evaluate for abnormal electrolytes /abnormal renal function/ abnormal hepatic/biliary function, TSH and reflex T4 to exclude thyroid abnormality, EKG and troponin to evaluate for ischemia/ACS. Chest x-ray to evaluate for consolidation/ infiltrate/ mass/ pulmonary congestion, viral serologies Differential Diagnosis Differential Diagnoses: The differential diagnosis associated with the presentation includes (See narrative above) Admission/Observation Consideration of admission/observation: Escalation of care including admission/observation considered (See narrative above and course narrative for further detail) Lab Data [facility] Lab Attestation statement: I reviewed the patient's lab results. CBC is without leukocytosis anemia or thrombocytopenia. No electrolyte derangement. No BRITTANI. LFTs overall unremarkable. CPK is mildly elevated 581, do not suspect acute rhabdo, likely secondary to his strike draining. High sensitive troponin below detectable limits. TSH within normal range. Viral serologies are negative. 09/28/24 07:23 04/07/24 07:23 Labs: Lab Results 04/07/24 Range/Units 07:23 WBC 8.3 (4.8-10.8) X10*3/uL RBC 4.70 (4.60-5.80) X10*6/uL Hgb 15.0 (14.0-18.0) g/dl Hct 42.2 (42.0-52.0) % MCV 89.8 (80.0-98.0) fL MCH 31.9 (27.0-33.0) pg MCHC 35.5 (31.0-36.0) g/dl RDW 13.2 (11.0-16.0) % Plt Count 283 (160-400) X10*3/uL MPV 9.4 (9.4-12.4) fL Immature Gran % (Auto) 0.2 (0.0-0.4) % Neut % (Auto) 61.3 (45-73) % Lymph % (Auto) 31.1 (20-40) % [place] % (Auto) 5.2 (2-11) % Eos % (Auto) 1.8 (0-4) % Baso % (Auto) 0.4 (0-2) % Lymph # (Auto) 2.6 (1.2-4.9) X10*3/uL [place] # (Auto) 0.4 (0.1-1.2) X10*3/uL Eos # (Auto) 0.2 (0.0-0.4) X10*3/uL Baso # (Auto) 0.0 (0.0-0.2) X10*3/uL Abs Immat Gran (auto) 0.02 (0.00-0.03) X10*3/uL Absolute Neuts (auto) 5.1 (2.0-8.3) x10*3/uL Absolute Nucleated RBC 0.000 (0.0-0.012) X10*3/uL Nucleated RBC % (auto) 0.0 (0.0-0.2) /100WBC Sodium 138 (135-145) mmol/L Potassium 4.4 (3.3-5.1) mmol/L Chloride 104 (96-108) mmol/L Carbon Dioxide 25 (22-29) mmol/L Anion Gap 13 (12-20) BUN 13 (9-16) mg/dL Creatinine 1.06 (0.5-1.4) mg/dL Estim Creat Clear Calc 88.8 Estimated GFR > 60 Random Glucose 106 (60-115) mg/dL Calcium 10.1 (8.4-10.2) mg/dL Total Bilirubin 0.8 (0.0-1.0) mg/dL AST 41 H (5-37) U/L ALT 32 (0-40) U/L Alkaline Phosphatase 103 (39-117) U/L Total Creatine Kinase 581 H (38-174) U/L Troponin I High Sens < 2.7 (<3.5-35.0) ng/L Total Protein 7.2 (6.5-8.0) g/dL Albumin 4.7 (3.5-5.0) g/dL TSH 1.28 (0.32-4.0) uIU/mL Influenza Type A (PCR) NEGATIVE (Negative) Influenza Type B (PCR) NEGATIVE (Negative) RSV RNA Qual (PCR) NEGATIVE (Negative) SARS-CoV-2 RNA (RT-PCR) NEGATIVE (Negative) Independent Interpretation I performed an independent interpretation of an: EKG (See narrative above) and Plain X-Ray (No consolidation or infiltrates) Radiology Impression Discussion of test interpretation with radiology: I have reviewed the radiologist's reading. Radiologist Impression: XR/XR chest 2V IMPRESSION: Unremarkable examination. Independent Historian Clinical information obtained from an independent historian. History obtained from or confirmed by: EMS External Record Review External record reviewed: Outpatient record Discharge Plan Discharge Clinical Impression: Chest pain Patient Disposition: Home, Self-Care Instructions: Chest Pain (ED), Noncardiac Chest Pain (ED) Additional Instructions: As discussed your workup in the emergency department today was very reassuring. Your blood work is overall unremarkable, your EKG reveals that you have a slightly slower than normal heart rate, this however can be common in people who were otherwise young healthy and fit. Please make sure that you are getting adequate rest as this can often result in fatigued. Excessive intake of caffeine can have an impact not only on your ability to sleep but also on your heart, at times can make you feel palpitations. Please be sure that you are staying well hydrated drinking plenty of fluids especially with your exercise regimen and protein intake. Follow-up with your primary care doctor for any new or worsening symptoms or concerns. You may return to emergency department any new or worsening symptoms or concerns. Prescriptions: No Action clindamycin HCl 300 mg capsule 300 mg PO Q8H 10 Days Qty: 30 0RF ibuprofen 600 mg tablet 600 mg PO Q8H PRN (Reason: pain) Qty: 20 0RF tramadol 50 mg tablet 50 mg PO Q6H PRN (Reason: severe pain (scale score 7-10)) Qty: 10 0RF amoxicillin-pot clavulanate 875-125 mg tablet 1 tab PO BID Qty: 20 0RF oxycodone 5 mg tablet 5 mg PO Q6H PRN (Reason: pain) Qty: 20 0RF Rx Instructions: Partial Fill upon patient request. amoxicillin-pot clavulanate 875-125 mg tablet 1 tab PO BID 10 Days Qty: 20 0RF acetaminophen [Tylenol Extra Strength] 500 mg tablet 500 mg PO Q6H PRN (Reason: fever or pain) Qty: 14 0RF ketorolac 10 mg tablet 10 mg PO TID PRN (Reason: pain) 5 Days Qty: 15 0RF amoxicillin-pot clavulanate 875-125 mg tablet 1 tab PO BID Qty: 14 0RF Referrals: Physician,None [Primary Care Provider] - Print Language: Romansh
[2024-04-07 07:33] LABS: MANUAL DIFF FLAG NO
--- NOTE | 2024-04-07 07:34 | PC.NURSE ---
report received from previous RN, patient arrives through external triage stating he has not had a full 8 hours of sleep in a few days, states he feels tired. states he drank coffee last night and could not fall asleep.
[2024-04-07 07:40] LABS: Basophils Percent Auto 0.4 % (0-2); Eosinophils Absolute Auto 0.2 X10*3/uL (0.0-0.4); Eosinophils Percent Auto 1.8 % (0-4); Hematocrit 42.2 % (42.0-52.0); Imm Gran Abs Auto 0.02 X10*3/uL (0.00-0.03); Imm Gran Pct Auto 0.2 % (0.0-0.4); Lymphocytes Absolute Auto 2.6 X10*3/uL (1.2-4.9); Lymphocytes Percent Auto 31.1 % (20-40); Mean Corpuscular HGB Conc 35.5 g/dl (31.0-36.0); Mean Corpuscular Hemoglobin 31.9 pg (27.0-33.0); Mean Corpuscular Volume 89.8 fL (80.0-98.0); Mean Platelet Volume 9.4 fL (9.4-12.4); Monocytes Absolute Auto 0.4 X10*3/uL (0.1-1.2); Monocytes Percent Auto 5.2 % (2-11); Neutrophils Absolute Auto 5.1 x10*3/uL (2.0-8.3); Neutrophils Percent Auto 61.3 % (45-73); Platelet Count 283 X10*3/uL (160-400); Red Cell Distribution Width 13.2 % (11.0-16.0); White Blood Count 8.3 X10*3/uL (4.8-10.8)
[2024-04-07 07:56] LABS: Alanine Aminotransferase 32 U/L (0-40); Albumin Level 4.7 g/dL (3.5-5.0); Alkaline Phosphatase 103 U/L (39-117); Anion Gap 13 (12-20); Aspartate Amino Transferase 41 U/L (5-37); Bilirubin Total 0.8 mg/dL (0.0-1.0); Blood Urea Nitrogen 13 mg/dL (9-16); Calcium 10.1 mg/dL (8.4-10.2); Carbon Dioxide 25 mmol/L (22-29); Chloride 104 mmol/L (96-108); Creatinine Clr Calc Pharmacy 88.8; Estimated Glomerular Filt Rate > 60; Glucose Random 106 mg/dL (60-115); Potassium 4.4 mmol/L (3.3-5.1); Sodium 138 mmol/L (135-145); Total Protein 7.2 g/dL (6.5-8.0)
[2024-04-07 07:58] LABS: Troponin-I High Sensitivity < 2.7 ng/L (<3.5-35.0)
[2024-04-07 08:11] LABS: TSH reflex Free T4 1.28 uIU/mL (0.32-4.0)
[2024-04-07 08:12] LABS: Influenza A PCR NEGATIVE (Negative); Influenza B PCR NEGATIVE (Negative); Resp Syncy Virus RNA Qual PCR NEGATIVE (Negative); SARS COV2 PCR INHOUSE NEGATIVE (Negative)
[2024-04-07 08:23] VITALS: BP 125/86; PULSE 63; RESP 13; TEMP 36.4; O2SAT 100
[2024-04-07 09:56] VITALS: BP 108/78; PULSE 63; RESP 12; TEMP 36.7; O2SAT 98
== END 2024-04-07 09:57 | disposition home or self-care (01) ==
PROVIDERS: Nurse Practitioner Family; Emergency Provider Emergency Medicine Emergency Medical Services
DX: R06.00 Dyspnea, unspecified (principal); R07.9 Chest pain, unspecified; R00.1 Bradycardia, unspecified; Z03.818 Encounter for observation for suspected exposure to other biological agents ruled out
CPT/HCPCS: 0241U; 36415; 71046; 80053; 82550; 84443; 84484; 85025; 93005; 99284